=== PATIENT | male | born 1990 | race African-American/Black ===

== ENCOUNTER 2017-03-08 17:25 | Emergency (ER) | payer SELFPAY | END 2017-03-08 17:45 | disposition home or self-care (01) | LOC: NAV ERS 17:25 | DX: R21 Rash and other nonspecific skin eruption (principal); F90.9 Attention-deficit hyperactivity disorder, unspecified type | CPT/HCPCS: 99282 ==

== ENCOUNTER 2018-05-09 15:14 | Emergency (ER) | payer OTHER, SELFPAY | END 2018-05-09 15:56 | disposition home or self-care (01) | LOC: NAV ERS 15:14 | DX: J02.9 Acute pharyngitis, unspecified (principal); F90.9 Attention-deficit hyperactivity disorder, unspecified type | CPT/HCPCS: 99281 ==

== ENCOUNTER 2018-11-15 22:52 | Emergency (ER) | payer MEDICARE, OTHER | END 2018-11-15 23:26 | disposition home or self-care (01) | LOC: NAV ERS 22:52 | DX: B35.9 Dermatophytosis, unspecified (principal) | CPT/HCPCS: 99281 ==

== ENCOUNTER 2019-04-19 03:05 | Emergency (ER) | payer MEDICARE, MEDICAID | END 2019-04-19 03:35 | disposition home or self-care (01) | LOC: NAV ERS 03:05 | DX: R21 Rash and other nonspecific skin eruption (principal) | CPT/HCPCS: 99282 ==

== ENCOUNTER 2020-09-11 16:10 | Emergency (ER) | payer MEDICARE, MEDICAID | END 2020-09-11 17:01 | LOC: NAV ERS 16:10 | DX: E86.0 Dehydration (principal); K59.00 Constipation, unspecified | CPT/HCPCS: 99283 ==